=== PATIENT | female | born 1975 | race Hispanic/Latino ===

== ENCOUNTER 2022-08-04 01:09 | Observation (INO) | payer BC ==
[~2022-08-04] VITALS: Ht 165.1 cm; Wt 81.6 kg
[2022-08-04] VITALS (12 sets, daily range): BP systolic 115–162; BP diastolic 71–97; PULSE 85–109; RESP 15–18; TEMP 97.6–98.6; O2SAT 98–100
[2022-08-04 01:27] LABS: BASOPHILS % 0.2 % (0.0-1.0); EOSINOPHILS % 0.4 % (0.0-6.0); HEMATOCRIT 32.3 % (34.2-44.1); HEMOGLOBIN 9.4 g/dL (12.0-16.0); LYMPHOCYTES # (AUTO) 2.8 (1.0-3.2); LYMPHOCYTES % 26.8 % (18.0-39.1); MEAN CORPUSCULAR HGB CONC 29.1 g/dL (31-35); MEAN CORPUSCULAR VOLUME 72.1 fL (81-99); MONOCYTES # (AUTO) 0.5 (0.2-0.8); MONOCYTES % 5.1 % (4.4-11.3); NEUTROPHILS % 66.9 % (38.7-80.0); PLATELET COUNT 318 x10e3/uL (140-360); RED BLOOD COUNT 4.48 x10e6/uL (3.6-5.1); RED CELL DISTRIBUTION WIDTH 16.1 % (11.7-14.4)
[2022-08-04] MEDS: ASPIRIN 81 MG CHEW TAB PO ONE ×2 (01:27→01:33)
[2022-08-04] MEDS ORDERED: ONDANSETRON HCL INJ 2MG/ML 2ML 2 MG/ML VIAL IV STA (01:28)
[2022-08-04] MEDS ORDERED: Morphine 2mg Syringe 2 MG/ML SYR IV ONE (01:30)
[2022-08-04 01:45] LABS: ALBUMIN 3.5 g/dL (3.5-5.0); ALBUMIN/GLOBULIN RATIO 0.8 (0.8-2.0); ANION GAP 18.1 mmol/L (8-16); CALCIUM 9.4 mg/dL (8.4-10.2); CREATININE, SERUM 1.33 mg/dL (0.57-1.11); POTASSIUM 4.1 mmol/L (3.5-5.1)
[2022-08-04] MEDS ORDERED: INSULIN REGULAR, HUMAN 100 UNIT/1 ML SQ ONE (02:30)
[2022-08-04] MEDS ORDERED: DEXTROSE 50% SYRINGE 50 ML IV PRN (02:45)
[2022-08-04] MEDS ORDERED: SODIUM CHLORIDE FLUSH 10 ML SYR INJ PRN (02:45)
[2022-08-04] MEDS ORDERED: Morphine 2mg Syringe 2 MG/ML SYR IV PRN (02:45)
[2022-08-04] MEDS ORDERED: ONDANSETRON HCL INJ 2MG/ML 2ML 2 MG/ML VIAL IV PRN (02:45)
[2022-08-04] MEDS: INSULIN REGULAR, HUMAN 100 UNIT/1 ML SQ SCH ×4 (08:53→21:00)
[2022-08-04] MEDS: ASPIRIN 81 MG ENTERIC COATED PO SCH (09:14)
[2022-08-04] MEDS ORDERED: CLOPIDOGREL BISULFATE 75 MG TAB PO ONE (12:15)
[2022-08-04] MEDS: SODIUM CHLORIDE 0.9% 1000ML 1,000 ML IV SCH (12:18)
[2022-08-04] MEDS ORDERED: LIDOCAINE HCL 2% LOCAL 20 ML VIAL ONE (14:10)
[2022-08-04] MEDS ORDERED: NITROGLYCERIN/D5W 200 MCG/ML 250 ML ONE (14:11)
[2022-08-04] MEDS ORDERED: HEPARIN SOD/SOD CHLORIDE 2,000 ML ONE (14:11)
[2022-08-04] MEDS ORDERED: SODIUM CHLORIDE 0.9% 1000ML 1,000 ML ONE (14:11)
[2022-08-04] MEDS ORDERED: IOPAMIDOL 370 MG/ML 100 ML INFUS..BTL INJ ONE (14:11)
[2022-08-04] MEDS ORDERED: HEPARIN SOD (PORCINE) 1000 UNIT/ML 30ML ONE (14:58)
[2022-08-04] MEDS ORDERED: MIDAZOLAM HCL 2 MG/2 ML VIAL ONE (14:58)
[2022-08-04] MEDS ORDERED: FENTANYL CITRATE/PF 100MCG/2 ML INJ ONE (14:59)
[2022-08-04] MEDS ORDERED: BIVALRIUDIN 250 MG/VIAL VIAL IV ONE (15:17)
[2022-08-04] MEDS ORDERED: ASPIRIN 81 MG CHEW TAB ONE (15:39)
[2022-08-04] MEDS ORDERED: CLOPIDOGREL BISULFATE 75 MG TAB ONE (15:39)
[2022-08-04] MEDS ORDERED: ATORVASTATIN 40 MG TAB PO SCH (21:00)
[2022-08-05] VITALS: BP 113/57; PULSE 98; RESP 18; TEMP 98.4; O2SAT 99
[2022-08-05] MEDS: SODIUM CHLORIDE 0.9% 1000ML 1,000 ML IV SCH (01:28)
[2022-08-05 04:00] VITALS: BP 120/69; PULSE 68; RESP 18; TEMP 98.6; O2SAT 99
[2022-08-05 05:55] LABS: BASOPHILS % 0.3 % (0.0-1.0); EOSINOPHILS # (AUTO) 0.1 (0.0-0.4); EOSINOPHILS % 0.8 % (0.0-6.0); HEMATOCRIT 29.1 % (34.2-44.1); HEMOGLOBIN 8.3 g/dL (12.0-16.0); LYMPHOCYTES # (AUTO) 2.8 (1.0-3.2); LYMPHOCYTES % 31.4 % (18.0-39.1); MEAN CORPUSCULAR HEMOGLOBIN 21.2 pg (28-32); MEAN CORPUSCULAR HGB CONC 28.5 g/dL (31-35); MEAN CORPUSCULAR VOLUME 74.4 fL (81-99); MONOCYTES # (AUTO) 0.6 (0.2-0.8); MONOCYTES % 6.4 % (4.4-11.3); NEUTROPHILS # (AUTO) 5.4 (2.1-6.9); NEUTROPHILS % 60.7 % (38.7-80.0); PLATELET COUNT 313 x10e3/uL (140-360); RED BLOOD COUNT 3.91 x10e6/uL (3.6-5.1); RED CELL DISTRIBUTION WIDTH 16.2 % (11.7-14.4)
[2022-08-05 06:07] LABS: ALBUMIN/GLOBULIN RATIO 0.7 (0.8-2.0); ANION GAP 15.2 mmol/L (8-16); CALCIUM 8.8 mg/dL (8.4-10.2); CREATININE, SERUM 0.99 mg/dL (0.57-1.11); POTASSIUM 4.2 mmol/L (3.5-5.1)
[2022-08-05 06:12] LABS: CHOL/HDL RATIO 5.1 (3.0-3.6); CHOLESTEROL 189 MD/DL (0-199); HDL CHOLESTEROL 37 MG/DL (40-60); TRIGLYCERIDES 499 MG/DL (0-149)
[2022-08-05 06:46] LABS: THYROID STIMULATING HORMONE 1.428 uIU/mL (0.350-4.940)
[2022-08-05] MEDS ORDERED: ASPIRIN EC81 MG PO (07:38)
[2022-08-05] MEDS ORDERED: TOPROL XL25 MG PO (07:38)
[2022-08-05] MEDS ORDERED: ATORVASTATIN CA40 MG PO (07:38)
[2022-08-05] MEDS ORDERED: COZAAR25 MG PO (07:38)
[2022-08-05] MEDS ORDERED: PLAVIX75 MG PO (07:40)
[2022-08-05] MEDS ORDERED: METFORMIN HCL500 MG PO (07:43)
[2022-08-05] MEDS: ASPIRIN 81 MG ENTERIC COATED PO SCH (08:52)
[2022-08-05] MEDS ORDERED: LOSARTAN POTASSIUM 25 MG TAB PO SCH (09:00)
[2022-08-05] MEDS ORDERED: METOPROLOL SUCCINATE 25 MG TAB XL PO SCH (09:00)
[2022-08-05] MEDS ORDERED: CLOPIDOGREL BISULFATE 75 MG TAB PO SCH (09:00)
[2022-08-05 09:51] VITALS: BP 125/70; PULSE 100; RESP 17; TEMP 98.1; O2SAT 95
== END 2022-08-05 12:05 | disposition home or self-care (01) ==
LOC: ER 01:13 → ERHOLD 02:45 → MED/SURG 10:08
PROVIDERS: ADMIT Internal Medicine; ATTEND Internal Medicine
DX: I25.119 Atherosclerotic heart disease of native coronary artery with unspecified angina pectoris (principal); I10 Essential (primary) hypertension; E11.65 Type 2 diabetes mellitus with hyperglycemia; J90 Pleural effusion, not elsewhere classified; R00.0 Tachycardia, unspecified; E87.1 Hypo-osmolality and hyponatremia; R79.89 Other specified abnormal findings of blood chemistry; D64.9 Anemia, unspecified; I34.0 Nonrheumatic mitral (valve) insufficiency; I07.1 Rheumatic tricuspid insufficiency; Z20.822 Contact with and (suspected) exposure to COVID-19; Z79.02 Long term (current) use of antithrombotics/antiplatelets; Z79.82 Long term (current) use of aspirin; Z79.84 Long term (current) use of oral hypoglycemic drugs; Z79.899 Other long term (current) drug therapy; Z68.31 Body mass index [BMI] 31.0-31.9, adult; Z82.49 Family history of ischemic heart disease and other diseases of the circulatory system; Z83.3 Family history of diabetes mellitus
CPT/HCPCS: 36415 ×2; 71045; 80053 ×2; 80061; 81025; 82550 ×2; 82948 ×2; 83036; 83880; 84443; 84484 ×2; 85025 ×2; 85379; 92928; 93005; 93306; 93458; 99284; C1760; C1769; C1876; C1887; G0378 ×2; J0583; J0690; J2001; J2250; J2270; J2405; J3010; J7030; Q9967; U0002; 99152; 99153; J1644